=== PATIENT | male | born 1970 | race Caucasian/White ===

== ENCOUNTER 2017-07-17 12:46 | Emergency (ER) | payer OTHER ==
[~2017-07-17] VITALS: Ht 188 cm; Wt 106.6 kg
[~2017-07-17 12:46] MED LIST: LISI20 PO
[2017-07-17] MEDS ORDERED: LISI20 PO (13:18)
[2018-04-21] MEDS ORDERED: ERYT1OIN RIGHTEYE (18:46)
== END 2017-07-17 13:25 | disposition home or self-care (01) ==
LOC: ER 12:46
DX: Z76.0 Encounter for issue of repeat prescription (principal); I10 Essential (primary) hypertension; Z79.899 Other long term (current) drug therapy; Z87.891 Personal history of nicotine dependence
CPT/HCPCS: 99282

== ENCOUNTER 2018-06-20 13:28 | Emergency (ER) | payer OTHER ==
[~2018-06-20] VITALS: Ht 188 cm; Wt 113.4 kg
[~2018-06-20 13:28] MED LIST changes: +ERYT1OIN RIGHTEYE
== END 2018-06-20 14:16 | disposition home or self-care (01) ==
LOC: ER 13:28
DX: T15.01XA Foreign body in cornea, right eye, initial encounter (principal); I10 Essential (primary) hypertension; Z79.899 Other long term (current) drug therapy; Z87.891 Personal history of nicotine dependence
CPT/HCPCS: 99283

== ENCOUNTER 2019-07-11 14:01 | Emergency (ER) | payer OTHER ==
[~2019-07-11] VITALS: Ht 188 cm; Wt 108.9 kg
[2019-07-11] MEDS ORDERED: OMEP20ER PO (15:07)
[2019-07-11] MEDS ORDERED: IBUP800 (15:07)
[2019-07-11] MEDS ORDERED: Norco 5-325 Ta1 EACH PO (17:15)
== END 2019-07-11 17:25 | disposition home or self-care (01) ==
LOC: ER 14:01
DX: K40.90 Unilateral inguinal hernia, without obstruction or gangrene, not specified as recurrent (principal); I10 Essential (primary) hypertension; Z87.891 Personal history of nicotine dependence
CPT/HCPCS: 99283; A9270

== ENCOUNTER 2019-08-16 08:26 | Day surgery (SDC) | payer OTHER ==
[~2019-08-16] VITALS: Ht 188 cm; Wt 92.8 kg
[~2019-08-16 08:26] MED LIST changes: +IBUP800; +Norco 5-325 Ta1 EACH PO; +OMEP20ER PO
--- NOTE | 2019-08-16 09:21 | NUR ---
Ambulatory in Day Surgery History, Chart, Medications and Allergies reviewed before start of procedure. Lungs clear T/O to Auscultation. Patient confirms NPO status and agrees with scheduled surgery. Pre-Op teaching done. Pt verbalizes understanding. Patient States Post-Procedure ride home has been arranged.
--- NOTE | 2019-08-16 13:30 | NUR ---
PT TRANSPORTED FROM PACU VIA GURNEY. PT IS DROWSY AND ALERT AND ORIENTED. VSS STABLE. PT ON 2L NC 96%. PT REPORTS PAIN BUT NO NAUSEA AT THIS TIME.
--- NOTE | 2019-08-16 13:41 | NUR ---
08/16/19 1341 Kassy Ortega CHART AUDIT: EDIT CHART.
--- NOTE | 2019-08-16 14:31 | NUR ---
Patient up to Ambulate independently. Gait steady. Discharge instructions reviewed with patient. Patient verbalizes understanding. Copy given to patient to take home. Dressing to procedure site clean, dry, intact with no visible drainage, swelling, erythema or bruising noted. Discharged via wheelchair to private car for ride home.
== END 2019-08-16 14:31 | disposition home or self-care (01) ==
LOC: ORSCMMR 08:26 → ORD 10:00 → ORSCMMR 10:00
PROVIDERS: Surgery
PROC: 8E0W4CZ Robotic Assisted Procedure of Trunk Region, Percutaneous Endoscopic Approach (ICD-10-PCS; principal; 2019-08-16 10:00)
PROC: 0YU54JZ Supplement Right Inguinal Region with Synthetic Substitute, Percutaneous Endoscopic Approach (ICD-10-PCS; principal; 2019-08-16 10:00)
DX: K40.90 Unilateral inguinal hernia, without obstruction or gangrene, not specified as recurrent (principal); I10 Essential (primary) hypertension; F17.210 Nicotine dependence, cigarettes, uncomplicated; G47.33 Obstructive sleep apnea (adult) (pediatric); Z79.899 Other long term (current) drug therapy
CPT/HCPCS: 49650; S2900; A9270-GY; C1781; J0690; J1100; J2250; J2405; J2704; J2765; J3010; J7120

== ENCOUNTER 2020-12-29 13:17 | Emergency (ER) | payer OTHER ==
[~2020-12-29] VITALS: Ht 188 cm; Wt 102.1 kg
[2020-12-29] MEDS ORDERED: PENVK500 PO (13:47)
[2020-12-29] MEDS ORDERED: IBUP600 PO (13:47)
== END 2020-12-29 14:05 | disposition home or self-care (01) ==
LOC: ER 13:17
DX: J02.0 Streptococcal pharyngitis (principal); F17.210 Nicotine dependence, cigarettes, uncomplicated
CPT/HCPCS: 87430; 99282; A9270; J1100

== ENCOUNTER 2022-05-14 11:24 | Emergency (ER) | payer OTHER ==
[~2022-05-14] VITALS: Ht 188 cm; Wt 104.3 kg
[~2022-05-14 11:24] MED LIST changes: +IBUP600 PO; +PENVK500 PO
[2022-05-14 12:11] LABS: BASOPHILS ABSOLUTE AUTO 0.05 K/mm3 (0.00-0.23); BASOPHILS PERCENT AUTO 0 % (0-2); EOSINOPHILS ABSOLUTE AUTO 1.35 K/mm3 (0.00-0.68); EOSINOPHILS PERCENT AUTO 11 % (0-6); Hematocrit 47.6 % (37.0-53.0); Hemoglobin 15.3 g/dL (13.5-17.5); IMMATURE GRAN ABSOLUTE AUTO 0.04 K/mm3 (0.00-0.10); IMMATURE GRAN PERCENT AUTO 0 % (0-1); LYMPHOCYTES ABSOLUTE AUTO 3.33 K/mm3 (0.84-5.20); LYMPHOCYTES PERCENT AUTO 27 % (21-46); MONOCYTES ABSOLUTE AUTO 1.11 K/mm3 (0.16-1.47); MONOCYTES PERCENT AUTO 9 % (4-13); Mean Corpuscular HGB 28.7 pg (26.0-34.0); Mean Corpuscular HGB Conc 32.1 g/dL (31.5-36.5); Mean Corpuscular Volume 89 fL (80-100); Mean Platelet Volume 9.1 fL (9.1-12.4); NEUTROPHILS ABSOLUTE AUTO 6.59 K/mm3 (1.96-9.15); NEUTROPHILS PERCENT AUTO 53 % (41-73); Platelet Count 420 K/mm3 (150-400); RDW Coefficient Variation 13.6 % (11.7-14.2); Red Blood Cell Count 5.34 M/mm3 (4.30-5.90); White Blood Cell Count 12.47 K/mm3 (4.00-11.30)
[2022-05-14 12:30] LABS: Bilirubin, Total 0.5 mg/dL (0.1-1.0); Bun/Creatinine Ratio 12.5 (12.0-20.0); Calcium, Blood 9.3 mg/dL (8.5-10.1); Creatinine, Blood 0.8 mg/dL (0.60-1.20); Globulin, Blood 4.1 g/dL (2.2-4.0); Potassium, Blood 4.1 mmol/L (3.5-5.5); Total Protein, Blood 8.1 g/dL (6.4-8.2)
[2022-05-14 12:45] LABS: Influenza A, PCR NEGATIVE (NEGATIVE); Influenza B, PCR NEGATIVE (NEGATIVE); Resp Syncytial Virus, PCR NEGATIVE (NEGATIVE); SARS-Cov-2 (COVID-19) PCR, MMC NEGATIVE (NEGATIVE)
[2022-05-14] MEDS ORDERED: IBUP800 PO (12:59)
[2022-05-14] MEDS ORDERED: ALBU90OI INH (15:33)
[2022-05-14] MEDS ORDERED: PRED20 PO (15:33)
== END 2022-05-14 15:43 | disposition home or self-care (01) ==
LOC: ER 11:24
PROVIDERS: Physician Assistant
DX: R06.02 Shortness of breath (principal); R06.2 Wheezing; R07.9 Chest pain, unspecified; I10 Essential (primary) hypertension; F17.210 Nicotine dependence, cigarettes, uncomplicated; Z79.899 Other long term (current) drug therapy; Z20.822 Contact with and (suspected) exposure to COVID-19
CPT/HCPCS: 0241U; 36415; 71045; 80053; 83690; 83880; 84484; 85025; 85379; 93005; 93010; 94640; 94664; A9270; J1885; J2930

== ENCOUNTER 2024-08-30 10:27 | Emergency (ER) | payer OTHER ==
[~2024-08-30] VITALS: Ht 182.9 cm; Wt 113.4 kg
[~2024-08-30 10:27] MED LIST changes: +ALBU90OI INH; +IBUP800 PO; +PRED20 PO
[2024-08-30] MEDS ORDERED: Ipratropium/Albuterol SulF 2.5-0.5MG/3 ML Amp INH ONE (10:40)
[2024-08-30 11:14] VITALS: BP 145/86
== END 2024-08-30 11:30 | disposition home or self-care (01) ==
LOC: ER 10:27
DX: R06.02 Shortness of breath (principal); Z87.891 Personal history of nicotine dependence; I10 Essential (primary) hypertension; Z79.899 Other long term (current) drug therapy; Z79.1 Long term (current) use of non-steroidal anti-inflammatories (NSAID); Z79.52 Long term (current) use of systemic steroids; Z79.51 Long term (current) use of inhaled steroids
CPT/HCPCS: 94640; 94664; 99284-25